=== PATIENT | male | born 1970 | race Caucasian/White ===

== ENCOUNTER 2016-07-21 06:05 | Emergency (ER) | payer SELFPAY ==
[2016-07-21 06:19] VITALS: BP 122/79
--- NOTE | 2016-07-21 06:57 | EDM.PDOC ---
<Wesley Conley - Last Filed: 07/21/16 07:51> ED HISTORY OF PRESENT ILLNESS - General Chief Complaint: Respiratory Problem Stated Complaint: CONGESTION/COUGH/FEVER Time Seen by Provider: 07/21/16 06:27 - Related Data Allergies/ADRs: Allergies Allergy/AdvReac Type Severity Reaction Status Date / Time aspirin Allergy Bleeding Verified 07/21/16 06:20 Home Meds: Home Meds Celecoxib [CeleBREX] 50 mg PO BID PRN 07/21/16 [History] Fexofenadine/Pseudoephedrine [Mag-D 12 Hour] 1 tab PO BID PRN 07/21/16 [ History] Hydrocodone/Chlorphen P-Stirex [Tussionex Pennkinetic Susp] 5 ml PO Q12H PRN # 60 ml 07/21/16 [Rx] Levofloxacin [Levaquin] 500 mg PO Q24H #10 tablet 07/21/16 [Rx] Course - Vital Signs Last Recorded V/S: Last Vital Signs Temp 36.2 C 07/21/16 06:15 Pulse 86 07/21/16 06:15 Resp 18 07/21/16 06:15 BP 122/79 07/21/16 06:15 Pulse Ox 96 07/21/16 06:15 - Orders/Labs/Meds Labs: Laboratory Tests 07/21/16 07/21/16 Range/Units 06:55 06:55 WBC 5.92 (4.23-9.07) K/mm3 RBC 4.96 (4.63-6.08) M/mm3 Hgb 15.4 (13.7-17.5) gm/L Hct 45.0 (40.1-51.0) % MCV 90.7 (79.0-92.2) fl MCH 31.0 (25.7-32.2) pg MCHC 34.2 (32.2-35.5) g/dl RDW Std Deviation 47.6 H (35.1-43.9) fL Plt Count 259 (163-337) K/mm3 MPV 8.6 L (9.4-12.3) fl Neutrophils % (Manual) 54 (40-60) % Band Neutrophils % 1 (0-10) % Lymphocytes % (Manual) 32 (20-40) % Atypical Lymphs % 0 % Monocytes % (Manual) 8 (2-10) % Eosinophils % (Manual) 5 (0.8-7.0) % Basophils % (Manual) 0 L (0.2-1.2) Platelet Estimate Adequate RBC Morph Comment Normal Sodium 138 (136-145) mEq/L Potassium 3.7 (3.5-5.1) mEq/L Chloride 103 (98-107) mEq/L Carbon Dioxide 26 (21-32) mEq/L Anion Gap 12.7 (5-15) BUN 13 (7-18) mg/dL Creatinine 1.2 (0.7-1.3) mg/dL Est Cr Clr Drug Dosing 88.78 mL/min Estimated GFR (MDRD) > 60 (>60) mL/min BUN/Creatinine Ratio 10.8 L (14-18) Glucose 107 H (74-106) mg/dL Calcium 8.9 (8.5-10.1) mg/dL Total Bilirubin 0.5 (0.2-1.0) mg/dL AST 18 (15-37) U/L ALT 44 (16-63) U/L Alkaline Phosphatase 73 (46-116) U/L Total Protein 7.0 (6.4-8.2) g/dl Albumin 3.8 (3.4-5.0) g/dl Globulin 3.2 gm/dL Albumin/Globulin Ratio 1.2 (1-2) - Re-Assessments/Exams Free Text/Narrative Re-Assessment/Exam: 07/21/16 07:30 two-view chest x-ray completed. Cardiac silhouette is normal. There is a slightly increased infiltrate in the right lower lobe that appears chronic. Lab work is still pending. Departure - Departure Time of Disposition: 07:51 Disposition: Home, Self-Care 01 Condition: fair Clinical Impression: Bronchitis Prescriptions: Hydrocodone/Chlorphen P-Stirex [Tussionex Pennkinetic Susp] 5 ml PO Q12H PRN # 60 ml PRN Reason: cough relief Levofloxacin [Levaquin] 500 mg PO Q24H #10 tablet Instructions: Acute Bronchitis Referrals: PCP,None [Primary Care Provider] - Forms: ED Department Discharge Additional Instructions: Evaluation in the emergency today in regards to development of upper respiratory tract infection with harsh paroxysmal productive sounding cough. 2 view x-ray was carried out and does not reveal a pneumonia but does reveal heavy bronchitis particularly in the right lower lobe of lung. Treatment is therefore antibiotic Levaquin 500 mg once daily for the next 10 days. Cough syrup is Tussionex 5 mils every 12 hours necessary for cough relief. I would suggest using a half a teaspoon in the morning only and teaspoon at bedtime about an hour before bed to help control cough. Expect gradual improvement over the next 72 hours. Followup with personal physician if any further problems occur. <Logan Franks - Last Filed: 07/22/16 07:58> ED HISTORY OF PRESENT ILLNESS - General Source of Information: Reports: Patient, RN notes reviewed History Limitations: Reports: No limitations - History of Present Illness INITIAL COMMENTS - FREE TEXT/NARRATIVE: The patient states that he has had a cough productive of yellowish sputum for the past few days. He developed nausea, dyspnea exertion, and lightheadedness with exertion yesterday, and chest congestion last night. He has had a subjective fever, although he is afebrile here. No vomiting, constipation, diarrhea, or urinary symptoms. The patient has a scratchy throat from coughing , but not a sore throat, per se. The patient states that he was on a cruise to the [facility] from 2016 through 07/11/2014. He notes that several other members of his cruise ship are reporting similar symptoms. The patient did not receive an influenza vaccine this season. Past Medical History Respiratory History: Reports: Asthma Gastrointestinal History: Reports: GI bleed (with aspirin) Genitourinary History: Reports: Renal calculus Musculoskeletal History: Reports: Other (see below) (Pseudogout) - Past Surgical History Musculoskeletal Surgical History: Reports: Knee replacement (Left) Social & Family History - Family History Family Medical History: Noncontributory - Tobacco Use Smoking Status *Q: Never Smoker - Alcohol Use Alcohol Use History: Yes Alcohol Use Frequency: Socially - Recreational Drug Use Recreational Drug Use: No - Living Situation & Occupation Living situation: Reports: , with spouse, with family (3 kids, 1 grandchild) Occupation: employed ([employer]) ED ROS GENERAL - Review of Systems Review Of Systems: See Below Constitutional: Reports: no symptoms HEENT: Reports: No symptoms Respiratory: Reports: Shortness of Breath, Cough, Sputum Cardiovascular: Reports: No symptoms Endocrine: Reports: no symptoms GI/Abdominal: Reports: No symptoms : Reports: no symptoms Musculoskeletal: Reports: no symptoms Skin: Reports: no symptoms Neurological: Reports: No Symptoms Psychiatric: Reports: No symptoms Hematologic/Lymphatic: Reports: no symptoms Immunologic: Reports: no symptoms ED EXAM, GENERAL - Physical Exam Exam: See Below Exam Limited By: No limitations General Appearance: alert, WD/WN, no apparent distress Eye Exam: bilateral eye: EOMI, normal inspection Ears: normal external exam, normal canal, hearing grossly normal, normal TMs Ear Exam: bilateral ear: auricle normal, canal normal, TM normal Nose: normal inspection, no blood, other (Bilateral nasal mucosal edema) Throat/Mouth: Normal inspection, Normal lips, Normal teeth, Normal gums, Normal voice, No airway compromise, Other (Oropharyngeal erythema, but no swelling) Head: atraumatic, normocephalic Neck: normal inspection, full range of motion. No: lymphadenopathy (L), lymphadenopathy (R) Respiratory/Chest: no respiratory distress, lungs clear, normal breath sounds, no accessory muscle use, chest non-tender Cardiovascular: normal peripheral pulses, regular rate, rhythm, no edema, no gallop, no JVD, no murmur, no rub Peripheral Pulses: 4+: radial (L), radial (R) GI/Abdominal: normal bowel sounds, soft, non tender, no organomegaly, no distention, no abnormal bruit, no mass Back Exam: normal inspection, full range of motion, NT Extremities: normal inspection, normal range of motion, normal capillary refill Neurological: alert, oriented, normal cognition, no motor/sensory deficits Psychiatric: normal affect Skin Exam: Warm, Dry, Intact, Normal color, No rash Lymphatic: no adenopathy Course - Orders/Labs/Meds Labs: Laboratory Tests 07/21/16 07/21/16 Range/Units 06:55 06:55 WBC 5.92 (4.23-9.07) K/mm3 RBC 4.96 (4.63-6.08) M/mm3 Hgb 15.4 (13.7-17.5) gm/L Hct 45.0 (40.1-51.0) % MCV 90.7 (79.0-92.2) fl MCH 31.0 (25.7-32.2) pg MCHC 34.2 (32.2-35.5) g/dl RDW Std Deviation 47.6 H (35.1-43.9) fL Plt Count 259 (163-337) K/mm3 MPV 8.6 L (9.4-12.3) fl Neutrophils % (Manual) 54 (40-60) % Band Neutrophils % 1 (0-10) % Lymphocytes % (Manual) 32 (20-40) % Atypical Lymphs % 0 % Monocytes % (Manual) 8 (2-10) % Eosinophils % (Manual) 5 (0.8-7.0) % Basophils % (Manual) 0 L (0.2-1.2) Platelet Estimate Adequate RBC Morph Comment Normal Sodium 138 (136-145) mEq/L Potassium 3.7 (3.5-5.1) mEq/L Chloride 103 (98-107) mEq/L Carbon Dioxide 26 (21-32) mEq/L Anion Gap 12.7 (5-15) BUN 13 (7-18) mg/dL Creatinine 1.2 (0.7-1.3) mg/dL Est Cr Clr Drug Dosing 88.78 mL/min Estimated GFR (MDRD) > 60 (>60) mL/min BUN/Creatinine Ratio 10.8 L (14-18) Glucose 107 H (74-106) mg/dL Calcium 8.9 (8.5-10.1) mg/dL Total Bilirubin 0.5 (0.2-1.0) mg/dL AST 18 (15-37) U/L ALT 44 (16-63) U/L Alkaline Phosphatase 73 (46-116) U/L Total Protein 7.0 (6.4-8.2) g/dl Albumin 3.8 (3.4-5.0) g/dl Globulin 3.2 gm/dL Albumin/Globulin Ratio 1.2 (1-2) - Re-Assessments/Exams Free Text/Narrative Re-Assessment/Exam: 07/21/16 07:[address] Conley, and care of the patient turned over to him at this time, for change of shift.
--- NOTE | 2016-07-21 08:02 | CR ---
Chest: Two views of the chest were obtained. Comparison: Previous chest CT of 10/06/11. Nodule is identified within the left upper lung adjacent to the hilum. This could represent a vessel on end although the size of this is larger than adjacent vessels and this may represent an actual nodule. Finding measures about 1.1 cm in size. Lungs are otherwise clear. Heart size and mediastinum are normal. Bony structures appear unremarkable. Impression: 1. Possible nodule within the left upper lung. Contrast-enhanced chest CT recommended to further evaluate. 2. Two-view chest x-ray is otherwise unremarkable. Diagnostic code #9
== END 2016-07-21 08:10 | disposition home or self-care (01) ==
LOC: JD.ED 06:05
DX: J40 Bronchitis, not specified as acute or chronic (principal); Z96.652 Presence of left artificial knee joint; Z88.6 Allergy status to analgesic agent
CPT/HCPCS: 36415; 71020; 71020-26; 80053; 85025; 87804; 99283

== ENCOUNTER 2021-09-30 21:23 | Day surgery (SDC) | payer OTHER ==
[2021-09-30] MEDS ORDERED: Sodium Chloride 0.9% 10 ML Syringe FLUSH PRN (21:46)
[2021-09-30] MEDS ORDERED: Glucagon,Human Recombinant 1 MG Vial IVPUSH ONE (21:47)
[2021-09-30] MEDS ORDERED: LORazepam 2 MG/ML SDV IVPUSH ONE (21:47)
[2021-09-30] MEDS ORDERED: Lactated Ringers 1,000 ML IV SCH (22:00)
[2021-09-30] MEDS ORDERED: Propofol 200 MG/20 ML SDV ONE (23:23)
[2021-09-30] MEDS ORDERED: fentaNYL 250 MCG/5 ML SDV ONE (23:23)
[2021-09-30] MEDS ORDERED: Succinylcholine 200 MG/10 ML MDV ONE (23:24)
[2021-09-30] MEDS ORDERED: Dexamethasone 4 MG/ML SDV ONE (23:24)
[2021-09-30] MEDS ORDERED: Lidocaine 1% 6 ML ONE (23:24)
[2021-09-30] MEDS ORDERED: Ondansetron 4 MG/2 ML SDV ONE (23:24)
[2021-09-30] MEDS ORDERED: Lactated Ringers 1,000 ML ONE (23:43)
[2021-09-30] MEDS ORDERED: Phenylephrine 1% 10 MG/ML SDV ONE (23:44)
[2021-09-30] MEDS ORDERED: Sodium Chloride 0.9% 100 ML ONE (23:44)
[2021-10-01] MEDS ORDERED: HYDROmorphone 0.5 MG/0.5 ML Syringe IVPUSH PRN (00:24)
[2021-10-01] MEDS ORDERED: Ondansetron 4 MG/2 ML SDV IVPUSH PRN (00:24)
[2021-10-01] MEDS ORDERED: fentaNYL 100 MCG/2 ML SDV IVPUSH PRN (00:24)
[2021-10-01] MEDS ORDERED: Albuterol 0.083% 2.5 MG/3 ML Neb Soln NEB ONE (00:25)
[2021-10-01 01:15] VITALS: BP 134/90; PULSE 89
== END 2021-10-01 01:20 | disposition home or self-care (01) ==
LOC: JD.ED 21:23 → JD.SDS 22:42
PROVIDERS: ATTEND Surgery
DX: K21.00 Gastro-esophageal reflux disease with esophagitis, without bleeding (principal); T18.108A Unspecified foreign body in esophagus causing other injury, initial encounter; Z88.6 Allergy status to analgesic agent; J45.909 Unspecified asthma, uncomplicated; Z79.899 Other long term (current) drug therapy
CPT/HCPCS: 43239; 71046; 96361; 96374; 96375; 99284; J0330; J1100; J1610; J2060; J2370; J2704; J3010; J3490; J7120; 00731; J2405

== ENCOUNTER 2022-10-19 13:33 | Emergency (ER) | payer OTHER ==
[2022-10-19] MEDS ORDERED: Sodium Chloride 0.9% 10 ML Syringe FLUSH PRN (14:24)
[2022-10-19] MEDS ORDERED: Ketorolac 30 MG/ML SDV IVPUSH ONE (14:25)
[2022-10-19 15:15] LABS: BASOPHILS ABSOLUTE AUTO 0.03 K/mm3 (0.01-0.08); BASOPHILS PERCENT AUTO 0.6 % (0.1-1.2); EOSINOPHILS ABSOLUTE AUTO 0.25 K/mm3 (0.04-0.54); EOSINOPHILS PERCENT AUTO 4.9 (0.8-7.0); HEMATOCRIT 45.4 % (40.1-51.0); HEMOGLOBIN 15.1 gm/dl (13.7-17.5); IMMATURE GRAN ABSOLUTE AUTO 0.01 K/mm3 (0.00-0.10); IMMATURE GRAN PERCENT AUTO 0.2 % (<=1.0); LYMPHOCYTES PERCENT AUTO 25.5 % (21.8-53.1); MEAN CORPUSCULAR HEMOGLOBIN 31.2 pg (25.7-32.2); MEAN CORPUSCULAR HGB CONC 33.3 g/dl (32.2-35.5); MEAN CORPUSCULAR VOLUME 93.8 fl (79.0-92.2); MEAN PLATELET VOLUME 8.6 fl (9.4-12.3); MONOCYTES ABSOLUTE AUTO 0.58 K/mm3 (0.30-0.82); MONOCYTES PERCENT AUTO 11.4 % (5.3-12.2); NEUTROPHILS ABSOLUTE AUTO 2.92 K/mm3 (1.78-5.38); NEUTROPHILS PERCENT AUTO 57.4 % (34.0-67.9); PLATELET COUNT,PLT 271 K/mm3 (163-337); RED BLOOD CELL COUNT 4.84 M/mm3 (4.63-6.08); WHITE BLOOD CELL COUNT,WBC 5.09 K/mm3 (4.23-9.07)
[2022-10-19 15:34] LABS: INR 0.98; PROTHROMBIN TIME 10.5 SECONDS (9.7-12.0)
[2022-10-19 15:36] LABS: A/G RATIO 1.2 (1-2); ALANINE AMINOTRANSFERASE,ALT 34 U/L (16-63); ALBUMIN 3.6 g/dl (3.4-5.0); ALKALINE PHOSPHATASE 77 U/L (46-116); ANION GAP 11.8 (5-15); ASPARTATE AMNIOTRANSFERASE,AST 18 U/L (15-37); BILIRUBIN TOTAL 0.5 mg/dL (0.2-1.0); BLOOD UREA NITROGEN,BUN 9 mg/dL (7-18); BUN/CREATININE RATIO 8.2 (14-18); C-REACTIVE PROTEIN <0.2 mg/dL (<1.0); CALCIUM 8.5 mg/dL (8.5-10.1); CARBON DIOXIDE,CO2 26 mEq/L (21-32); CHLORIDE,CL 105 mEq/L (98-107); CREATININE 1.1 mg/dL (0.7-1.3); EST CRCL DRUG DOSING (CG) 89.79 mL/min; ESTIMATED GFR 81 mL/min (>60); GLUCOSE RANDOM 112 mg/dL (70-99); MAGNESIUM 2.1 mg/dL (1.8-2.4); POTASSIUM,K 3.8 mEq/L (3.5-5.1); PROTEIN TOTAL,TP 6.7 g/dl (6.4-8.2); SODIUM,NA 139 mEq/L (136-145)
[2022-10-19 17:06] VITALS: BP 136/105; PULSE 82
== END 2022-10-19 17:02 | disposition home or self-care (01) ==
LOC: JD.ED 13:33
DX: G43.809 Other migraine, not intractable, without status migrainosus (principal); R41.3 Other amnesia; J45.909 Unspecified asthma, uncomplicated; Z88.8 Allergy status to other drugs, medicaments and biological substances
CPT/HCPCS: 36415; 70450; 80053; 83735; 85025; 85610; 86140; 96374; 99284; J1885; J3490

== ENCOUNTER 2024-04-10 22:25 | Emergency (ER) | payer OTHER ==
[2024-04-10] MEDS ORDERED: Sodium Chloride 0.9% 10 ML Syringe FLUSH PRN ×2 (22:52→23:10)
[2024-04-10 23:00] LABS: BASOPHILS PERCENT AUTO 0.4 % (0.0-1.0); EOSINOPHILS ABSOLUTE AUTO 0.1 K/mm3 (0.0-0.4); EOSINOPHILS PERCENT AUTO 1.3 % (0.0-6.0); HEMATOCRIT 46.3 % (42.0-52.0); HEMOGLOBIN 15.4 gm/dl (14.0-18.0); IMMATURE GRAN ABSOLUTE AUTO 0.04 K/mm3 (0.00-0.05); IMMATURE GRAN PERCENT AUTO 0.4 % (0.0-0.4); LYMPHOCYTES PERCENT AUTO 20.8 % (24.0-44.0); MEAN CORPUSCULAR HEMOGLOBIN 30.7 pg (28.0-32.0); MEAN CORPUSCULAR HGB CONC 33.3 g/dl (32.0-36.0); MEAN CORPUSCULAR VOLUME 92.2 fl (83.0-99.0); MEAN PLATELET VOLUME 8.7 fl (9.4-12.4); MONOCYTES ABSOLUTE AUTO 0.8 K/mm3 (0.0-0.8); NEUTROPHILS ABSOLUTE AUTO 6.4 K/mm3 (1.8-7.7); NEUTROPHILS PERCENT AUTO 68.1 % (41.0-71.0); PLATELET COUNT,PLT 257 K/mm3 (150-400); RED BLOOD CELL COUNT 5.02 M/mm3 (4.52-5.90); WHITE BLOOD CELL COUNT,WBC 9.37 K/mm3 (3.9-11.3)
[2024-04-10 23:20] LABS: A/G RATIO 1.1 (1-2); ALBUMIN 3.6 g/dl (3.4-5.0); ANION GAP 11.6 (5-15); BILIRUBIN TOTAL 0.4 mg/dL (0.2-1.0); BUN/CREATININE RATIO 14.2 (14-18); CALCIUM 8.3 mg/dL (8.5-10.1); CREATININE 1.2 mg/dL (0.7-1.3); EST CRCL DRUG DOSING (CG) 81.38 mL/min; POTASSIUM,K 3.6 mEq/L (3.5-5.1); PROTEIN TOTAL,TP 6.8 g/dl (6.4-8.2)
[2024-04-10] MEDS: Iopamidol 612 MG/ML 100 ML Bottle IVPUSH ONE (23:57)
[2024-04-11 00:08] LABS: APPEARANCE,URINE CLEAR (Clear); BILIRUBIN,URINE NEGATIVE (Negative); COLOR,URINE YELLOW (Yellow); GLUCOSE,URINE NEGATIVE (Negative); KETONES,URINE NEGATIVE (Negative); LEUKOCYTE ESTERASE,URINE NEGATIVE (Negative); NITRITE,URINE NEGATIVE (Negative); OCCULT BLOOD,URINE TRACE-INTACT (Negative); PROTEIN,URINE NEGATIVE (Negative); UROBILINOGEN,URINE 0.2 (0.2-1.0)
[2024-04-11 01:41] LABS: BACTERIA,URINE NOT SEEN /hpf (FEW); EPITHELIAL CELLS,URINE 0-5 /hpf (0-5); MUCUS,URINE NOT SEEN /hpf (FEW); RBC,URINE 0-5 /hpf (0-5); WBC,URINE 0-5 /hpf (0-5)
[2024-04-11 03:27] VITALS: BP 142/86; PULSE 85
== END 2024-04-11 03:26 | disposition home or self-care (01) ==
LOC: JD.ED 22:25
DX: R10.32 Left lower quadrant pain (principal); R10.12 Left upper quadrant pain; J45.909 Unspecified asthma, uncomplicated; Z96.659 Presence of unspecified artificial knee joint; Z86.16 Personal history of COVID-19; Z88.6 Allergy status to analgesic agent; Z79.899 Other long term (current) drug therapy
CPT/HCPCS: 36415; 71045; 74177; 80053; 81001; 83690; 84484; 85025; 93005; 99285; Q9967

== ENCOUNTER 2024-11-04 19:41 | Emergency (ER) | payer OTHER ==
[2024-11-04 20:40] VITALS: BP 140/84; PULSE 84
== END 2024-11-04 20:51 | disposition home or self-care (01) ==
LOC: JD.ED 19:41
DX: B86 Scabies (principal); Z88.8 Allergy status to other drugs, medicaments and biological substances; Z86.16 Personal history of COVID-19; Z79.899 Other long term (current) drug therapy
CPT/HCPCS: 99282